=== PATIENT | male | born 1995 | race Caucasian/White ===

== ENCOUNTER 2016-10-18 20:30 | Emergency (ER) | payer OTHER ==
[2016-10-18 20:35] VITALS: BP 127/77
[2016-10-18] MEDS ORDERED: Tetracaine 0.5% OPTH.SOL 4 ML* 1 DROP BTL RIGHT EYE ONE (20:57)
[2016-10-18] MEDS ORDERED: Fluorescein Sodium TOPICAL* 1 MG TEST OPHTHALMIC ONE (20:58)
[2016-10-18] MEDS ORDERED: BSS OPTH.SOL* BTL OPHTHALMIC ONE (20:58)
--- NOTE | 2016-10-18 21:17 | UC ---
Eye Complaint HPI - HPI Summary HPI Summary: complaint of getting superglue into his right eye by accident this evening painful right eye can open eye but it is painful denies vision changes in eye - History of Current Complaint Chief Complaint: UCEye Stated Complaint: FB IN EYE Time Seen by Provider: 10/18/16 21:11 Hx Obtained From: Patient - Allergies/Home Medications Allergies/Adverse Reactions: Allergies Allergy/AdvReac Type Severity Reaction Status Date / Time Ibuprofen Allergy Unknown Verified 10/02/15 23:52 Reaction Details PMH/Surg Hx/FS Hx/Imm Hx Previously Healthy: Yes - Surgical History Surgical History: None - Family History Known Family History: Positive: Unknown Negative: Hypertension, Diabetes - Social History Occupation: Employed Full-time Lives: With Family Alcohol Use: Rare Substance Use Type: None, Synthetic Drugs Substance Use Comment - Amount & Last Used: took LSD 10/01 leading to admission Smoking Status (MU): Heavy Every Day Tobacco Smoker Type: Cigarettes Amount Used/How Often: 1/2ppd Have You Smoked in the Last Year: Yes Cessation Counseling: Patient Advised to Stop - Immunization History Most Recent Influenza Vaccination: na Most Recent Tetanus Shot: up to date Most Recent Pneumonia Vaccination: unknown Review of Systems Constitutional: Negative Skin: Negative Eyes: Other - super glue in eye ENT: Negative Respiratory: Negative Cardiovascular: Negative Gastrointestinal: Negative Genitourinary: Negative Motor: Negative Neurovascular: Negative Musculoskeletal: Negative Neurological: Negative Psychological: Negative All Other Systems Reviewed And Are Negative: Yes Physical Exam Triage Information Reviewed: Yes Appearance: No Pain Distress, Well-Nourished Vital Signs: Initial Vital Signs Temp 99.9 F 10/18/16 20:33 Pulse 99 10/18/16 20:33 Resp 20 10/18/16 20:33 BP 127/77 10/18/16 20:33 Pulse Ox 98 10/18/16 20:33 Vital Signs Reviewed: Yes Eyes: Positive: Conjunctiva Inflamed, Other: - right eye observed under fluoriscene- some superglue accumilation to bottom eyelid no abrasions to cornea ENT: Positive: Pharynx normal, TMs normal Neck: Positive: No Lymphadenopathy Respiratory: Positive: Lungs clear, Normal breath sounds, No respiratory distress, No accessory muscle use Cardiovascular: Positive: RRR, No Murmur, Pulses Normal Neurological Exam: Normal Psychological Exam: Other - anxious Skin Exam: Normal Eye Complaint Course/Dx - Differential Dx/Diagnosis Differential Diagnosis/HQI/PQRI: Corneal Abrasion, Foreign Body Provider Diagnoses: right eye- foreign substance Discharge - Discharge Plan Condition: Stable Disposition: HOME Patient Education Materials: Eye Pain (ED) Referrals: Vishnu Ahmadi MD [Medical Doctor] - Additional Instructions: Please start antibiotic ointment as directed call Dr Ahmadi for followup appt tomorrow morning Increase fluids and rest Take acetaminophen or ibuprofen for fever or pain Please review your discharge instructions. If your symptoms do not improve please call your primary care provider or return to urgent care
[2016-10-18] MEDS ORDERED: Erythromycin OPTH OINT* APPLIC OINT RIGHT EYE ONE (21:20)
== END 2016-10-18 21:35 | disposition home or self-care (01) ==
LOC: UCEAST 20:30
DX: T15.91XA Foreign body on external eye, part unspecified, right eye, initial encounter (principal); S00.251A Superficial foreign body of right eyelid and periocular area, initial encounter; Z72.0 Tobacco use
CPT/HCPCS: 99212; A9270-GY; G0463

== ENCOUNTER 2017-06-11 20:36 | Inpatient (IN) | payer OTHER ==
[2017-06-11 21:52] LABS: Urine Appearance Clear; Urine Blood Negative (Negative); Urine Color Yellow; Urine Ketones Trace (Negative); Urine Protein 1+(30 mg/dL) (Negative); Urine Specific Gravity 1.023 (1.010-1.030); Urine Urobilinogen Negative (Negative)
[2017-06-11 21:52] LABS: ABS Basophils 0 10^3/ul (0-0.2); ABS Eosinophils 0.1 10^3/ul (0-0.6); ABS Lymphocytes 1.3 10^3/ul (1.0-4.8); ABS Monocytes 0.4 10^3/ul (0-0.8); ABS Nucleated RBC 0 10^3/ul; Eosinophil % 1.2 % (0-6); Hematocrit 42 % (42-52); Hemoglobin 14.6 g/dl (14.0-18.0); Lymphocyte % 16.3 % (25-47); Mean Corpuscular HGB Conc 35 g/dl (31-36); Mean Corpuscular Hemoglobin 30 pg (27-31); Mean Corpuscular Volume 85 fL (80-94); Mean Platelet Volume 8 um3 (7.4-10.4); Nucleated Red Blood Cells % 0.2; Platelet Count 261 10^3/ul (150-450); Red Blood Count 4.88 10^6/ul (4.0-5.4); Red Cell Distribution Width 13 % (10.5-15); White Blood Count 7.8 10^3/ul (3.5-10.8)
[2017-06-11 22:07] LABS: EGFR Non-African American 103.6 (>60)
--- NOTE | 2017-06-12 05:47 | ED ---
Milton Mcgee Stephanie, scribed for Wisam Cannon MD on 06/11/17 at 2127 . Psychiatric Complaint - HPI Summary HPI Summary: The pt is a 21 y/o M BIB [facility] on a voluntary 941 call due to purchasing a weapon at 20:43. The pt states havent been taken my meds like I should". The pt states he is unaware of who informed the police of his weapon. The pt states he purchased a semi-automatic rifle approximately six months ago however, he states he has not had the chance to use it. The pt denies hunting. He states he used to attend [employer] but is currently on a leave of absence from [employer]. He last saw his psychiatrist on April 07, 2017. The pt denies SI and HI. - History Of Current Complaint Chief Complaint: EDMentalHealth Time Seen by Provider: 06/11/17 21:05 Hx Obtained From: Patient Onset/Duration: Still Present Character: Anxious Aggravating Factor(s): Nothing Alleviating Factor(s): Nothing Has Suicidal: Denies: Thoughts Has Homicidal: Denies: Thoughts - Allergies/Home Medications Allergies/Adverse Reactions: Allergies Allergy/AdvReac Type Severity Reaction Status Date / Time ibuprofen Allergy Unknown Verified 06/11/17 20:46 Reaction Details Home Medications: Home Medications Divalproex ER TAB(*) [Depakote ER TAB(*)] 1,250 mg PO DAILY 06/11/17 [History Confirmed 06/11/17] Lisdexamfetamine (NF) [Vyvanse (NF)] 70 mg PO DAILY 06/11/17 [History Confirmed 06/11/17] Trifluoperazine HCl 5 mg PO DAILY 06/11/17 [History Confirmed 06/11/17] buPROPion SR TAB* [Wellbutrin SR TAB*] 150 mg PO DAILY 06/11/17 [History Confirmed 06/11/17] clonazePAM TAB(*) [KlonoPIN TAB(*)] 2 mg PO DAILY 06/11/17 [History Confirmed ] PMH/Surg Hx/FS Hx/Imm Hx Respiratory History: Reports: Hx Asthma Denies: Hx Chronic Bronchitis, Hx Chronic Obstructive Pulmonary Disease (COPD ), Hx Cystic Fibrosis, Hx Lung Cancer, Hx Pleural Effusion, Hx Pneumonia, Hx Pulmonary Edema, Hx Pulmonary Embolism, Hx Seasonal Allergies, Hx Sleep Apnea, Other Respiratory Problems/Disorders Psychiatric History: Reports: Hx Depression, Hx Community Mental Health Tx - Saw a therapist Joe Dupont, Hx Bipolar Disorder - told a possibility, Hx Suicide Attempt - events leading to this admission, Other Psychiatric Issues/ Disorders - mood disorder Denies: Hx Anxiety, Hx Attention Deficit Hyperactivity Disorder, Hx Eating Disorder - Pt denies eat d/o, reports poor appetite chronically, Hx Panic Disorder, Hx Post Traumatic Stress Disorder, Hx Inpatient Treatment, Hx Schizophrenia, Hx of Violent Episodes Against Others - Pt Denies, Hx Substance Abuse - experiments - Surgical History Surgery Procedure, Year, and Place: NONE Infectious Disease History: No Infectious Disease History: Denies: Hx Tuberculosis, Traveled Outside the [place] in Last 30 Days - Family History Known Family History: Positive: Unknown Negative: Hypertension, Diabetes - Social History Occupation: Student Lives: Alone Alcohol Use: Rare Hx Substance Use: Yes Substance Use Type: Reports: None, Synthetic Drugs Substance Use Comment - Amount & Last Used: took LSD 10/01 leading to admission Smoking Status (MU): Heavy Every Day Tobacco Smoker Type: Cigarettes Amount Used/How Often: 1/2ppd Have You Smoked in the Last Year: Yes Review of Systems Negative: Fever Positive: Other - Negative: SI and HI All Other Systems Reviewed And Are Negative: Yes Physical Exam - Summary Physical Exam Summary: VITAL SIGNS: Reviewed. GENERAL: Patient is a well-developed and nourished MALE who is sitting comfortable in the stretcher. Patient is not in any acute respiratory distress. HEAD AND FACE: No signs of trauma. No ecchymosis, hematomas or skull depressions. No sinus tenderness. EYES: PERRLA, EOMI x 2, No injected conjunctiva, no nystagmus. EARS: Hearing grossly intact. Ear canals and tympanic membranes are within normal limits. MOUTH: Oropharynx within normal limits. NECK: Supple, trachea is midline, no adenopathy, no JVD, no carotid bruit, no c- spine tenderness, neck with full ROM. CHEST: Symmetric, no tenderness at palpation LUNGS: Clear to auscultation bilaterally. No wheezing or crackles. CVS: Regular rate and rhythm, S1 and S2 present, no murmurs or gallops appreciated. ABDOMEN: Soft, non-tender. No signs of distention. No rebound no guarding, and no masses palpated. Bowel sounds are normal. EXTREMITIES: FROM in all major joints, no edema, no cyanosis or clubbing. NEURO: Alert and oriented x 3. No acute neurological deficits. Speech is normal and follows commands. SKIN: Dry and warm PSYCH: withdrawn and anxious but cooperative. Denies SI and HI Triage Information Reviewed: Yes Vital Signs On Initial Exam: Initial Vitals Temp Pulse Resp BP Pulse Ox 99.5 F 110 16 139/75 99 06/11/17 20:39 06/11/17 20:39 06/11/17 20:39 06/11/17 20:39 06/11/17 20:39 Vital Signs Reviewed: Yes Diagnostics - Vital Signs Vital Signs Temp Pulse Resp BP Pulse Ox 06/11/17 20:39 99.5 F 110 16 139/75 99 - Laboratory Lab Results: Lab Results 06/11/17 06/11/17 06/11/17 Range/Units 21:21 21:21 21:35 WBC (3.5-10.8) 10^3/ul RBC (4.0-5.4) 10^6/ul Hgb (14.0-18.0) g/dl Hct (42-52) % MCV (80-94) fL MCH (27-31) pg MCHC (31-36) g/dl RDW (10.5-15) % Plt Count (150-450) 10^3/ul MPV (7.4-10.4) um3 Neut % (Auto) (38-83) % Lymph % (Auto) (25-47) % Mercer % (Auto) (0-7) % Eos % (Auto) (0-6) % Baso % (Auto) (0-2) % Absolute Neuts (auto) (1.5-7.7) 10^3/ul Absolute Lymphs (auto) (1.0-4.8) 10^3/ul Absolute Monos (auto) (0-0.8) 10^3/ul Absolute Eos (auto) (0-0.6) 10^3/ul Absolute Basos (auto) (0-0.2) 10^3/ul Absolute Nucleated RBC 10^3/ul Nucleated RBC % Sodium 135 (133-145) mmol/L Potassium 4.1 (3.5-5.0) mmol/L Chloride 101 (101-111) mmol/L Carbon Dioxide 27 (22-32) mmol/L Anion Gap 7 (2-11) mmol/L BUN 13 (6-24) mg/dL Creatinine 0.93 (0.67-1.17) mg/dL Est GFR ( Amer) 133.2 (>60) Est GFR (Non-Af Amer) 103.6 (>60) BUN/Creatinine Ratio 14.0 (8-20) Glucose 105 H (70-100) mg/dL Calcium 9.8 (8.6-10.3) mg/dL Total Bilirubin 0.50 (0.2-1.0) mg/dL AST 15 (13-39) U/L ALT 13 (7-52) U/L Alkaline Phosphatase 68 (34-104) U/L Total Protein 7.4 (6.4-8.9) g/dL Albumin 4.7 (3.2-5.2) g/dL Globulin 2.7 (2-4) g/dL Albumin/Globulin Ratio 1.7 (1-3) TSH 0.53 (0.34-5.60) mcIU/mL Urine Color Yellow Urine Appearance Clear Urine pH 6.0 (5-9) Ur Specific [place] 1.023 (1.010-1.030) Urine Protein 1+(30 mg/dl) A (Negative) Urine Ketones Trace A (Negative) Urine Blood Negative (Negative) Urine Nitrate Negative (Negative) Urine Bilirubin Negative (Negative) Urine Urobilinogen Negative (Negative) Ur Leukocyte Esterase Negative (Negative) Urine WBC (Auto) Trace(0-5/hpf) (Absent) Urine RBC (Auto) Trace(0-2/hpf) (Absent) Urine Bacteria Absent (Absent) Urine Sperm Present A (Absent) Urine Glucose 1+(50 mg/dl) A (Negative) Salicylates < 2.50 (<30) mg/dL Urine Opiates Screen Presumptive positive A (None Detect) Acetaminophen < 15 mcg/mL Ur Barbiturates Screen None detected (None Detect) Ur Phencyclidine Scrn None detected (None Detect) Ur Amphetamines Screen Presumptive positive A (None Detect) U Benzodiazepines Scrn Presumptive positive A (None Detect) Urine Cocaine Screen None detected (None Detect) U Cannabinoids Screen None detected (None Detect) Serum Alcohol < 10 (<10) mg/dL 06/11/17 Range/Units 21:35 WBC 7.8 (3.5-10.8) 10^3/ul RBC 4.88 (4.0-5.4) 10^6/ul Hgb 14.6 (14.0-18.0) g/dl Hct 42 (42-52) % MCV 85 (80-94) fL MCH 30 (27-31) pg MCHC 35 (31-36) g/dl RDW 13 (10.5-15) % Plt Count 261 (150-450) 10^3/ul MPV 8 (7.4-10.4) um3 Neut % (Auto) 77.2 (38-83) % Lymph % (Auto) 16.3 L (25-47) % Mercer % (Auto) 4.7 (0-7) % Eos % (Auto) 1.2 (0-6) % Baso % (Auto) 0.6 (0-2) % Absolute Neuts (auto) 6.0 (1.5-7.7) 10^3/ul Absolute Lymphs (auto) 1.3 (1.0-4.8) 10^3/ul Absolute Monos (auto) 0.4 (0-0.8) 10^3/ul Absolute Eos (auto) 0.1 (0-0.6) 10^3/ul Absolute Basos (auto) 0 (0-0.2) 10^3/ul Absolute Nucleated RBC 0 10^3/ul Nucleated RBC % 0.2 Sodium (133-145) mmol/L Potassium (3.5-5.0) mmol/L Chloride (101-111) mmol/L Carbon Dioxide (22-32) mmol/L Anion Gap (2-11) mmol/L BUN (6-24) mg/dL Creatinine (0.67-1.17) mg/dL Est GFR ( Amer) (>60) Est GFR (Non-Af Amer) (>60) BUN/Creatinine Ratio (8-20) Glucose (70-100) mg/dL Calcium (8.6-10.3) mg/dL Total Bilirubin (0.2-1.0) mg/dL AST (13-39) U/L ALT (7-52) U/L Alkaline Phosphatase (34-104) U/L Total Protein (6.4-8.9) g/dL Albumin (3.2-5.2) g/dL Globulin (2-4) g/dL Albumin/Globulin Ratio (1-3) TSH (0.34-5.60) mcIU/mL Urine Color Urine Appearance Urine pH (5-9) Ur Specific [place] (1.010-1.030) Urine Protein (Negative) Urine Ketones (Negative) Urine Blood (Negative) Urine Nitrate (Negative) Urine Bilirubin (Negative) Urine Urobilinogen (Negative) Ur Leukocyte Esterase (Negative) Urine WBC (Auto) (Absent) Urine RBC (Auto) (Absent) Urine Bacteria (Absent) Urine Sperm (Absent) Urine Glucose (Negative) Salicylates (<30) mg/dL Urine Opiates Screen (None Detect) Acetaminophen mcg/mL Ur Barbiturates Screen (None Detect) Ur Phencyclidine Scrn (None Detect) Ur Amphetamines Screen (None Detect) U Benzodiazepines Scrn (None Detect) Urine Cocaine Screen (None Detect) U Cannabinoids Screen (None Detect) Serum Alcohol (<10) mg/dL Result Diagrams: 06/11/17 21:35 06/11/17 21:35 Lab Statement: Any lab studies that have been ordered have been reviewed, and results considered in the medical decision making process. Course/Dx - Course Course Of Treatment: The pt will be held overnight in the ED. He is a sign out to Dr. Smalls at shift change pending FBI involvement (Per KANWAL Stacy). - Differential Dx/Clinical Impression Provider Diagnosis: Bipolar 1 disorder Discharge - Discharge Plan Condition: Stable Disposition: OTHER Discharge Disposition Comment: The pt will be a sign out to Dr. Smalls at shift change at 07:00. Referrals: No Primary Care Phys,NOPCP [Primary Care Provider] - The documentation as recorded by the Milton stokes Stephanie accurately reflects the service I personally performed and the decisions made by me, Wisam Cannon MD.
[2017-06-12] MEDS ORDERED: Al Hydrox/Mg Hydrox/Simet LIQ* 30 ML UDC PO PRN (11:06)
--- NOTE | 2017-06-12 11:28 | ADMNOTE ---
History - Objective HPI: Psychiatric Attending History and Physical NAME: Ezequiel Walsh : 1995 AGE: 21 PROVIDER: Ari Knight D.O. DATE OF ADMISSION: 06/12/2017 JUSTIFICATION FOR ADMISSION: patient brought by [place] police to evaluate whether patient is threat to self and/or others. FBI investigation and recent search of home reveals patient has been purchasing and stockpiling weapons and ammunition in his home. Patient has history of psychiatric illness, hospitalization and treatment. Patient requires admission to inpatient psychiatric unit which offers 24 hour supervision in order to fully assess his mental status in order to determine whether he is currently a safety risk and if so, to provide treatment and appropriate discharge planning until that risk is no longer present. CHIEF COMPLAINT: "I haven't been taking my medication" HISTORY OF THE PRESENT ILLNESS: Patient is a 21 yo single male, living alone in [place]. He attended [employer] for a year but withdraw in the context of mental health problems. He is currently 3/4 time student at [employer] and works 6 hours doing [employer]. He was hospitalized less than a year ago on our behavioral health unit in the context of agitation and psychotic symtoms which resolved . 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 Patient has been receiving outpatient psychiatric treatment from Dr. Zepeda for "bipolar disorder" and ADHD. On admission, he endorsed not taking his psychiatric medications for the past week or so, His medications include Depakote ER, Stellazine, Wellbutrin XL and Vyvanse. According to the record police were notified that patient had gun in his apratment and concern was raised that with patient's history of depression there was a risk of danger to self. Per ED chart [place] Police and FBI came to patient's apartment with a search warrant. Per ED record "Guns, abundant amouts of ammunition and bomb making materials" were found in his apartment. Patient was brought to the ED last night by [place] police department for evaluation of his level of safety. Patient has history of intermittent self injury (superficial cutting of arms). Has not self injured since spring. history of episodic SI related to being depressed. never had intent or plan. no history of suicide attempt. patient last had passive SI in spring. There is no history of arrest, incarceration or legal problems. Patient denies past history of aggression, explosive behavior, assaultive behavior. He has never been in a physical fight or altercation. denies being bullied as a child. deies lighting fires or fascination with fires. Also denies history of enuresis, killing animals either as a child or adult. Patient admits to increased depression over past few weeks which has been exacerbated by non compliance with his medication. He endorses: less attention to ADL's (wearing same clothes, not shaving), feeling sadder than usual, anhedonia, low energy, low motivation, missing more classes than usual, isolating in his apartment. PAST PSYCHIATRIC HISTORY: Pateint describes being shy, anxious, distractible, inattentive, and "a difficult kid" beginning in [employer]. Attended private day school 2nd through 8th grade and struggled with completing homework and meeting rigorous academic expectation due to his severe ADHD. Treated by Dr. Lozoya for psychotherapy, family therapy and medication for 7 years. Parent training helped parernts understand and help Max through difficulties. Treated with Adderall 4th through 8th grades which helped. patient describes being social anxious and self conscious since 1st grade. depression began in early middle school but not formally diagnosed till later. Went to public school where he had friends and was highly motivated to succeed so he could be like the friends he admired. no medication through high school. worked very hard to get good grades (A's,B's occ C). Freshman year (fall to Spring 2015). patient reports he was overwhelmed being away from home in new environement and having to care for himself. increasing symptoms of depression first semester. struggling academically due to depression and untreated ADHD. made comments about feeling suicidal to his girlfriend. reports binge drug use throughout freshman year including cocaine and stimulants which he obtained "on street". advised to go home by counseling service. went home to [facility] saw psychiatrist who diagnosed depression and started Lexapro in Feb 2015. managed to complete the semester with passing grades. believes lexapro helped with depression. Depressive Symptoms at some point cycled into first manic episode. Upon returning for second semester patient describes symptoms of marli which persisted for many months including grandiose thoughts, hyperverbal, increased goal direction, risky behaviors like speeding 120 miles per hour, insomnia, bingeing on different drugs. patient reports that drug use was fueled by "feeling invincible" and not the other way around. Hospitalized September 2015 at [facility] after using LSD upon discharge from [facility], parents brought him to [facility] where he was hositalized for 2 weeks. Reports he was diagnosed with bipolar disorder started on seroquel up to 250 mg and maintained on wellbutrin 150 mg. subsequently, did 6 week [facility] program where he was started on haldol and seroquel was increased to 600 mg. reports, that he had severe sedation and developed auditory hallucinations from increase in seroquel. also was told that his correct diagnosis was schizophrenia. Parents withdrew him from program early and patient discontinued seroquel and haldol He returned to [employer] for fall. Began seeing new psychiatrist (Dr. Plascencia). struggled academically and withdrew from school. School Gave him a leave of absence for one year and agreed to reconsider him for readmission in one year (apr 2016 to Apr 2017). he attended [employer] during this time but attempted to take on too many classes. failed a few classes but passed others. attempted to return to [employer] in Apr 2017 but was told to take an additional semester off before reapplying. SUBSTANCE ABUSE HISTORY: binge use of cocaine. last used in 2015, marijuana use sporadically. reports monthly use only, used to use heavily in high school, LSD on 5 to 6 occasions. Last used in fall, used percocet for a month in 2015 and most recently 5 day binge of codein just prior to being admitted here. abused stimulants and cocaine during manic period in spring. PAST MEDICAL HISTORY: asthma CURRENT MEDICATIONS: Depakote ER 1250 mg daily Trifluoperazine 5 mg qhs Wellbutrin XL 150 mg qam Vyvanse 70 mg QAM ALLERGIES: Ibuprofen FAMILY PSYCHIATRIC HISTORY: Mother with history of Bipolar disorder. used lithium in the past Paternal Uncle: completed suicide paternal side: alcoholism FAMILY/PSYCHOSOCIAL HISTORY: Father disabled in car accident when he was 6. father retired from finance field Mother and father have good marriage. denies history of abuse/trauma. two sisters both younger. one is a freshman at [employer] this year. very close with family. REVIEW OF SYSTEMS: all noncontributory per hospitalist's H and P completed in ED on 06/11/2017 PHYSICAL EXAMINATION: UNREMARKABLE (NORMAL PHYSICAL EXAMINATION) per hospitalists H and P completed in ED on 06/11/2017 MENTAL STATUS EXAMINATION: patient reports he has been in moderate depression past few months with anhedonia, anergia, amotivation, negative self image, sleep difficulty. denies SIB since freshman year of college. denies suicidal ideation since late freshman year in high school. has not been getting to classes lately has been bingeing on various drugs intermittently (LSD,alcohol,codein). received codein from dentist last month. never used it. but prior to admission patient binged with the codein tablets using 30 tablets over 5 day period. He denies feeling suicidal or homicidal. He is not sure who called police. Thinks it may have been girlfriend and "wouldn't blame her if she had" although he denies making any provocative statements to gf about harming self or others. Patient was home last night. [facility] and [place] Police raided his home The ED record states that police found guns, ammunition and bomb making material. Patient reports to me that he had one gun, that he did have 500 to 700 bullets. He reports he had a piece of PVC pipe and a cover slide for a muzzle which he ackowledges are used in bomb making but he denies that they were in his possession for any such purpose. When asked about the gun he tells me that he has always had interest in guns and was exposed to target practice by his god father on 5 or 6 occasions in high school. He endorses buying the gun 6 months ago. He reports he had been thinking about the purchase for about two weeks. He asked gun shop reducing system operator if he were eligible as he had been voluntarily admitted to psychiatric hospital in past. He was told he was eligible. He waited a week to buy it. reports he never had any intention to harm anyone that he didnt know or someone who didn't have malintent for him. when asked to further explain, he admitted to feeling paranoid at times and feeling safer that he had a weapon in house in case of a home invasion. He denied feeling persecuted by any particular person or group. He fruther admitted to past history of visual hallucinations of ghosts with different colors which signify what mood they are in, hearing voices in past of people calling his name. also reported past history of believing that people were conspiring against him. reports he had first marli in second semester of his freshman year (2 years ago) He had grandiosity, rapid speech, incrased goal direction, severe impulsivity, increased sociabiility (compared to his normal shyness), marked insomnia, racing thoughts. believes marli fueled his drug use at the time which included fentanyl,cocaine and LSD. the latter use resulted in him being hospitalized here in September 2016. Patient further reports having not taken his stellazine for past week reprots that stellazine works to eliminate visual hallucinations, paranoia, and his grandiose thoughts. Patient denied ever having thoughts or fantasies of using gun in rampage shooting. denies ever firing the weapon. when asked what he does with it he reported that he assembes and disassmbles it, looks at it and enjoys seeing it. reports that he has never loaded it with ammunition because "that's the first thing you learn is that you never load it due to the danger" MSE: fairly related mood: dysphoric affect: limited range, constricted, some flattenting TP organized TC: denies AH and VH at present time but has had them intermittently over past two years attempts to cover it up, but clearly has some degree of suspiciousness, paranoia, a sense that he has to protect himself from unknown individuals who might harm him there is no specific individual or group but a general uneasiness about intention of strangers. patient admits to periods of marli when he has grandiose thoughts and feels euphoric and inflated. This is not the way he feels presently. He also endorses great difficulty concentrating, remaining on task, which improves somewhat with use of vyvanse but clearly not enough to be sucessful academically In past three semesters he has failed several classes which he was then permitted to withdraw from. there is no evidence patient is homicidal or has ever had homicidal ideation, intent or plan in past. patient has no Suicidal ideation intention or plan at present time. He reports that he has not felt suicidal since freshman year of college and that even then he never had intention or plan to carry it out. Alert and fully oriented cogntive exam: deferred till tomorrow insight: good with regard to mental health issues but not with regard to his substance addiction issues judgment: will defer at moment as I will need collateral history to make this determination impulse control: impaired secondary to his adhd, and mood disorder. LABORATORY DATA: Laboratory Last Values WBC 7.8 10^3/ul (3.5-10.8) 06/11/17 21:35 RBC 4.88 10^6/ul (4.0-5.4) 06/11/17 21:35 Hgb 14.6 g/dl (14.0-18.0) 06/11/17 21:35 Hct 42 % (42-52) 06/11/17 21:35 MCV 85 fL (80-94) 06/11/17 21:35 MCH 30 pg (27-31) 06/11/17 21:35 MCHC 35 g/dl (31-36) 06/11/17 21:35 RDW 13 % (10.5-15) 06/11/17 21:35 Plt Count 261 10^3/ul (150-450) 06/11/17 21:35 MPV 8 um3 (7.4-10.4) 06/11/17 21:35 Neut % (Auto) 77.2 % (38-83) 06/11/17 21:35 Lymph % (Auto) 16.3 % (25-47) L 06/11/17 21:35 Woodford % (Auto) 4.7 % (0-7) 06/11/17 21:35 Eos % (Auto) 1.2 % (0-6) 06/11/17 21:35 Baso % (Auto) 0.6 % (0-2) 06/11/17 21:35 Absolute Neuts (auto) 6.0 10^3/ul (1.5-7.7) 06/11/17 21:35 Absolute Lymphs (auto) 1.3 10^3/ul (1.0-4.8) 06/11/17 21:35 Absolute Monos (auto) 0.4 10^3/ul (0-0.8) 06/11/17 21:35 Absolute Eos (auto) 0.1 10^3/ul (0-0.6) 06/11/17 21:35 Absolute Basos (auto) 0 10^3/ul (0-0.2) 06/11/17 21:35 Absolute Nucleated RBC 0 10^3/ul 06/11/17 21:35 Nucleated RBC % 0.2 06/11/17 21:35 Sodium 135 mmol/L (133-145) 06/11/17 21:35 Potassium 4.1 mmol/L (3.5-5.0) 06/11/17 21:35 Chloride 101 mmol/L (101-111) 06/11/17 21:35 Carbon Dioxide 27 mmol/L (22-32) 06/11/17 21:35 Anion Gap 7 mmol/L (2-11) 06/11/17 21:35 BUN 13 mg/dL (6-24) 06/11/17 21:35 Creatinine 0.93 mg/dL (0.67-1.17) 06/11/17 21:35 Est GFR ( Amer) 133.2 (>60) 06/11/17 21:35 Est GFR (Non-Af Amer) 103.6 (>60) 06/11/17 21:35 BUN/Creatinine Ratio 14.0 (8-20) 06/11/17 21:35 Glucose 105 mg/dL (70-100) H 06/11/17 21:35 Hemoglobin A1c 5.4 % (4.0-5.6) 06/11/17 21:35 Calcium 9.8 mg/dL (8.6-10.3) 06/11/17 21:35 Total Bilirubin 0.50 mg/dL (0.2-1.0) 06/11/17 21:35 AST 15 U/L (13-39) 06/11/17 21:35 ALT 13 U/L (7-52) 06/11/17 21:35 Alkaline Phosphatase 68 U/L (34-104) 06/11/17 21:35 Total Protein 7.4 g/dL (6.4-8.9) 06/11/17 21:35 Albumin 4.7 g/dL (3.2-5.2) 06/11/17 21:35 Globulin 2.7 g/dL (2-4) 06/11/17 21:35 Albumin/Globulin Ratio 1.7 (1-3) 06/11/17 21:35 Triglycerides 42 mg/dL 06/11/17 21:35 Cholesterol 158 mg/dL 06/11/17 21:35 LDL Cholesterol 84 mg/dL 06/11/17 21:35 HDL Cholesterol 65.7 mg/dL 06/11/17 21:35 TSH 0.53 mcIU/mL (0.34-5.60) 06/11/17 21:35 Free T4 0.68 ng/dL (0.61-1.12) 06/11/17 21:35 Thyroxine (T4) 6.51 mcg/mL (6.09-12.23) 06/11/17 21:35 Urine Color Yellow 06/11/17 21:21 Urine Appearance Clear 06/11/17 21: Urine pH 6.0 (5-9) 06/11/17 21: Ur Specific Manson 1.023 (1.010-1.030) 06/11/17 21: Urine Protein 1+(30 mg/dl) (Negative) A 06/11/17 21: Urine Ketones Trace (Negative) A 06/11/17 21: Urine Blood Negative (Negative) 06/11/17 21: Urine Nitrate Negative (Negative) 06/11/17 21: Urine Bilirubin Negative (Negative) 06/11/17 21:21 Urine Urobilinogen Negative (Negative) 06/11/17 21: Ur Leukocyte Esterase Negative (Negative) 06/11/17 21: Urine WBC (Auto) Trace(0-5/hpf) (Absent) 06/11/17 21:21 Urine RBC (Auto) Trace(0-2/hpf) (Absent) 06/11/17 21:21 Urine Bacteria Absent (Absent) 06/11/17 21: Urine Sperm Present (Absent) A 06/11/17 21: Urine Glucose 1+(50 mg/dl) (Negative) A 06/11/17 21: Salicylates < 2.50 mg/dL (<30) 06/11/17 21:35 Urine Opiates Screen Presumptive positive (None Detect) A 06/11/17 21: Acetaminophen < 15 mcg/mL 06/11/17 21:35 Ur Barbiturates Screen None detected (None Detect) 06/11/17 21: Valproic Acid < 13.0 mcg/mL (50-100) L 06/11/17 21:35 Ur Phencyclidine Scrn None detected (None Detect) 06/11/17 21:21 Ur Amphetamines Screen Presumptive positive (None Detect) A 06/11/17 21:21 U Benzodiazepines Scrn Presumptive positive (None Detect) A 06/11/17 21:21 Urine Cocaine Screen None detected (None Detect) 06/11/17 21:21 U Cannabinoids Screen None detected (None Detect) 06/11/17 21:21 Serum Alcohol < 10 mg/dL (<10) 06/11/17 21:35 Syphilis IgG Antibody Nonreactive (Nonreactive) 06/11/17 21:35 IMPRESSION: Impression: patient has longstanding depression with prolonged manic episode in spring. He has been bingeing on multiple street drugs for many years likely a result of inadequate treatment of his comorbid disorders of ADHD and affective disorder. although it is plausible that psychotic symptoms are secondary to drug use, the presence of multiple psychotic symptoms (hallucinations and delusions) over the past two years present clearly during periods of depressiona and marli point to diagnosis of bipolar disorder. However, my sense is that patient's paranoia is much more pervasive and persistent and not just present during mood episodes or after drug use. Patient's anhedonia, anergy,social isolation, affective flattening are more consistent with negative psychotic sympotms. 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 stellazine 5 mg qhs Depakote ER 1250 mg qhs klonopin 2 mg qhs Hold stimulants for now patients substance issues require separate focus on discharge. consider outpatient versus inpatient program parents and patient will need to collaborate with regard to subtance treatment options consider adding lithium and changing stelazine to abilify as it treats bipolar disorder and psychotic symptoms seen in SAD get depakote level
--- NOTE | 2017-06-12 11:29 | ED ---
Ha Mcgee Angela, scribed for Albaro Smalls MD on 06/12/17 at 0935 . Progress - Progress Note Progress Note: This pt was signed out by Dr. Cannon, pending disposition, awaiting MHE. Pt was evaluated by the mental health tile helper and his case was reviewed by Dr. Dominguez. Dr. Dominguez recommends for the pt to be admitted to [facility]. Pt will be admitted to [facility], in stable condition, with a diagnosis of unspecified psychosis. Condition: Stable Disposition: Admit to Psychiatric [facility] Course/Dx - Diagnoses Provider Diagnoses: Unspecified psychosis The documentation as recorded by the Ha stokes Angela accurately reflects the service I personally performed and the decisions made by Slim becker Walter, MD.
[2017-06-12] MEDS ORDERED: clonazePAM TAB(*) 1 MG PO SCH ×2 (12:00→21:00)
[2017-06-12] MEDS: Mouth Piece, Nicotine* 1 EACH CARTRIDGE INH PRN (12:32)
[2017-06-12] MEDS: Nicotine Inhaler* 10 MG AMP INH PRN ×3 (12:33→22:10)
[2017-06-12] MEDS: Divalproex ER TAB(*) 250 MG PO SCH (12:33)
--- NOTE | 2017-06-12 18:48 | PN ---
Subjective - Subjective Subjective: psychiatric attending progress note Patient interviewed, mental status examination completed. In summary patient is 21 year old with history of bipolar disorder, polysubstance abuse, ADHD, social anxiety disorder who is currently in outpatient psychiatric treatment with Dr. Zepeda for past 2 years. patient last saw psychiatrist in April 2017. not currently seeing therapist. 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 He has been on temporary academic leave from [employer] since April 2016 having only completed two semesters. he lives alone and has girlfriend. one prior psychiatric hospitalization September 2015 when he became psychotic after using LSD. Longstanding history of depression since middle school. severe ADHD inattentive type since recyclable products sorter treated with adderall from 4th to 8th grade with adderall. no meds for high school where he excelled because he was highly motivated to get good grades like his friends. struggled to focus in high school, put in large number of hours to get work done. was depressed and experimented with drugs to self medicate depression and help him focus. patient reports he has been in moderate depression past few months with anhedonia, anergia, amotivation, negative self image, sleep difficulty. denies SIB since freshman year of college. denies suicidal ideation since late freshman year in high school. has not been getting to classes lately has been bingeing on various drugs intermittently (LSD,alcohol,codein). received codein from dentist last month. never used it. but prior to admission patient binged with the codein tablets using 30 tablets over 5 day period. He denies feeling suicidal or homicidal. He is not sure who called police. Thinks it may have been girlfriend and "wouldn't blame her if she had" although he denies making any provocative statements to gf about harming self or others. Patient was home last night. [facility] and [place] Police raided his home The ED record states that police found guns, ammunition and bomb making material. Patient reports to me that he had one gun, that he did have 500 to 700 bullets. He reports he had a piece of PVC pipe and a cover slide for a muzzle which he ackowledges are used in bomb making but he denies that they were in his possession for any such purpose. When asked about the gun he tells me that he has always had interest in guns and was exposed to target practice by his god father on 5 or 6 occasions in high school. He endorses buying the gun 6 months ago. He reports he had been thinking about the purchase for about two weeks. He asked gun shop hotel maintenance engineer if he were eligible as he had been voluntarily admitted to psychiatric hospital in past. He was told he was eligible. He waited a week to buy it. reports he never had any intention to harm anyone that he didnt know or someone who didn't have malintent for him. when asked to further explain, he admitted to feeling paranoid at times and feeling safer that he had a weapon in house in case of a home invasion. He denied feeling persecuted by any particular person or group. He fruther admitted to past history of visual hallucinations of ghosts with different colors which signify what mood they are in, hearing voices in past of people calling his name. also reported past history of believing that people were conspiring against him. reports he had first marli in second semester of his freshman year (2 years ago) He had grandiosity, rapid speech, incrased goal direction, severe impulsivity, increased sociabiility (compared to his normal shyness), marked insomnia, racing thoughts. believes marli fueled his drug use at the time which included fentanyl,cocaine and LSD. the latter use resulted in him being hospitalized here in September 2016. Patient further reports having not taken his stellazine for past week reprots that stellazine works to eliminate visual hallucinations, paranoia, and his grandiose thoughts. Patient denied ever having thoughts or fantasies of using gun in rampage shooting. denies ever firing the weapon. when asked what he does with it he reported that he assembes and disassmbles it, looks at it and enjoys seeing it. reports that he has never loaded it with ammunition because "that's the first thing you learn is that you never load it due to the danger" MSE: fairly related mood: dysphoric affect: limited range, constricted, some flattenting TP organized TC: denies AH and VH at present time but has had them intermittently over past two years attempts to cover it up, but clearly has some degree of suspiciousness, paranoia, a sense that he has to protect himself from unknown individuals who might harm him there is no specific individual or group but a general uneasiness about intention of strangers. patient admits to periods of marli when he has grandiose thoughts and feels euphoric and inflated. This is not the way he feels presently. He also endorses great difficulty concentrating, remaining on task, which improves somewhat with use of vyvanse but clearly not enough to be sucessful academically In past three semesters he has failed several classes which he was then permitted to withdraw from. there is no evidence patient is homicidal or has ever had homicidal ideation, intent or plan in past. patient has no Suicidal ideation intention or plan at present time. He reports that he has not felt suicidal since freshman year of college and that even then he never had intention or plan to carry it out. Alert and fully oriented cogntive exam: deferred till tomorrow insight: good with regard to mental health issues but not with regard to his substance addiction issues judgment: will defer at moment as I will need collateral history to make this determination impulse control: impaired secondary to his adhd, and mood disorder. Impression: patient has longstanding depression with prolonged manic episode in Spring of 2015. He has been bingeing on multiple street drugs for many years likely a result of inadequate treatment of his comorbid disorders of ADHD and affective disorder. although it is plausible that psychotic symptoms are secondary to drug use, the presence of multiple psychotic symptoms (hallucinations and delusions) over the past two years present clearly during periods of depressiona and marli point to diagnosis of bipolar disorder. However, my sense is that patient's paranoia is much more pervasive and persistent and not just present during mood episodes or after drug use. Patient's anhedonia, anergy,social isolation, affective flattening are more consistent with negative psychotic sympotms. 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 stellazine 5 mg qhs Depakote ER 1250 mg qhs klonopin 2 mg qhs Hold stimulants for now patient needs residential drug rehabilitation program would add lithium as well for bipolar disorder Plan - Plan Medications: Current Medications Acetaminophen (Tylenol Tab*) 650 mg PO Q4H PRN PRN Reason: for pain; or Temp >101 F Al Hydrox/Mg Hydrox/Simethicone (Maalox Plus*) 30 ml PO Q4H PRN PRN Reason: INDIGESTION Bupropion HCl (Wellbutrin Sr Tab*) 150 mg PO DAILY [facility] Clonazepam (Klonopin Tab(*)) 2 mg PO DAILY [facility] Last Admin: 06/12/17 12:33 Dose: 2 mg Device (Nicotine Mouth Piece*) 1 each INH .USE WITH NICOTROL PRN PRN Reason: CRAVING Last Admin: 06/12/17 12:32 Dose: 1 each Divalproex Sodium (Depakote Er Tab(*)) 1,250 mg PO DAILY [facility] Last Admin: 06/12/17 12:33 Dose: 1,250 mg Nicotine (Nicotine Inhaler*) 10 mg INH Q2H PRN PRN Reason: CRAVING Last Admin: 06/12/17 12:33 Dose: 10 mg Nicotine Polacrilex (Nicotine Gum*) 2 mg PO Q2H PRN PRN Reason: CRAVING
[2017-06-12] MEDS: Nicotine Patch Removal NOTE FOLLOW UP SCH (20:43)
[2017-06-12] MEDS: Acetaminophen TAB* 325 MG PO PRN (20:49)
[2017-06-13] MEDS ORDERED: Influenza VAC *QUAD* 2017-18* 0.5 ML SYRINGE IM ONE (09:00)
[2017-06-13] MEDS: Nicotine PATCH 7 MG/24 HR* PATCH TRANSDERM SCH (09:36)
[2017-06-13] MEDS: buPROPion SR TAB.SR* 150 MG PO SCH (09:37)
[2017-06-13] MEDS: Nicotine Inhaler* 10 MG AMP INH PRN ×5 (09:39→20:35)
[2017-06-13] MEDS: Acetaminophen TAB* 325 MG PO PRN ×4 (09:40→22:06)
[2017-06-13] MEDS: Divalproex ER TAB(*) 250 MG PO SCH ×2 (10:00→20:33)
--- NOTE | 2017-06-13 10:38 | PN ---
Subjective - Subjective Subjective: psychiatric attending progress note: met with patient X 60 minutes and requested he tell me details about items found in home by police and times in which he purchased them. patient bought gun in january/feb timeframe intending to use it for target practice. bougt scope in march on line and in april made silencer from materials he bought on line. patient denies ever having thought of using gun to harm human beings. denies homicidal ideation. also denies SI, intent or plan at present time. He insists that he intended to use gun for target practice. when asked where , he tells me that he passes [place] when driving home to [place] and had been thinking of going there. When asked why he needed silencer, he tells me it was to cover up the noise of the gun during target practice in the [place]. subsequent interview with Heather and his parents who arrived from [place] last night. they visited him last night. they were surprised to learn that he had purchased a gun without their knowledge Patient did not tell them as he knows his parents are strictly against using guns and likely would have insisted that he not purchase one. I discussed my diagnostic impression of Heather as having Scizoaffective Disorder Bipolar type. I shared that my concerns at present are the presence of paranoid ideation, with regard to feeling he could be harmed or unsafe.. and feeling suspicious about the intentions of others. furthermore, Heather did share today that he believes he was followed home by the police after purchasing something at a store recently. He believes the raid on his apartment may in fact be proof that the FBI or police have had him on surveillance. Heather also shared yesterday that the gun also provided a sense of security for him in that he would have a weapon to defend himself in case of a "home invasion" at his apartment here in [place]. Impression: heather has schizoaffective disorder and is being treated by psychiatrist in the community. while he has not been hospitalized since september of 2015, he continues to have residual depressive and psychotic symptoms (paranoia) on his current psychotropic regimen. To be sure He seems to have made gains with improved insight about his illness, improved capacity to take care of himself (cook, shop , pay his bills) and live independently. He also has made social gains. The presence of mood symtpoms and paranoid ideation continue to impact his ability to function and likely are major determinants to his difficulties with academic performance and regular school attendance. Shari denial that he has ever used his gun in the [place], as he suggests he has been planning to do since last fall, is perplexing. Shari isolation, depressed mood and the secrecy of the gun purchase raises further concerns. There is no indication that Heather exhibits antisocial character traits. There is no history of aggressive behavior, arrests, incarceration, serious rule violation, fire setting, impulsive or explosive anger. furthermore, Heather denies homicidal thoughts or fantasies either now or in past. to the contrary, Heather is described as sensitive, shy, loving and kind by his family. At the present time there is no indication that he is danger to self or others. Paranoid ideation, depression, history of mood swings, multiple recent and remote losses ( of his psychiatrist, father's car accident, temporary leave of absence from [employer], and medical leave of absence from [facility] which he just learned today), require that heather receive further treatment. He should not be permitted to purchase firearms given the incrased risk of violence in individuals with paranoid psychosis. Plan; d/c stelazine. start abiilty and titrate up to 15 mg daiily. to target patient' s shizoaffective disrorder (bipolar mood swings, paranoia, depression) change klonopin to 0.5 mg QID wellbutrin unchanged at 150 mg daily no stimulants for now trazodoen 50 mg qhs prn insomnia depakote er 1250 qam get VPA level on friday morning. Plan - Plan Treatment Plan: Name: SLOAN SHERIDAN Birthdate: 1995 [id number] Medications: Current Medications Acetaminophen (Tylenol Tab*) 650 mg PO Q4H PRN PRN Reason: for pain; or Temp >101 F Last Admin: 06/13/17 18:09 Dose: 650 mg Al Hydrox/Mg Hydrox/Simethicone (Maalox Plus*) 30 ml PO Q4H PRN PRN Reason: INDIGESTION Aripiprazole (Abilify Tab*) 5 mg PO BEDTIME [facility] Stop: 06/13/17 21:01 Aripiprazole (Abilify Tab*) 10 mg PO BEDTIME [facility] Stop: 06/14/17 21:01 Aripiprazole (Abilify Tab*) 15 mg PO BEDTIME [facility] Bupropion HCl (Wellbutrin Sr Tab*) 150 mg PO DAILY [facility] Last Admin: 06/13/17 09:37 Dose: 150 mg Clonazepam (Klonopin Tab(*)) 0.5 mg PO QID@09,13,17,21 [facility] Clonazepam (Klonopin Tab(*)) 1.5 mg PO BEDTIME [facility] Stop: 06/13/17 21:01 Device (Nicotine Mouth Piece*) 1 each INH .USE WITH NICOTROL PRN PRN Reason: CRAVING Last Admin: 06/12/17 12:32 Dose: 1 each Divalproex Sodium (Depakote Er Tab(*)) 1,250 mg PO DAILY@2099 [facility] Nicotine (Nicotine Inhaler*) 10 mg INH Q2H PRN PRN Reason: CRAVING Last Admin: 06/13/17 18:09 Dose: 10 mg Nicotine (Nicotine Patch 7 Mg/24 Hr*) 1 patch TRANSDERM DAILY [facility] Last Admin: 06/13/17 09:36 Dose: 1 patch Nicotine Polacrilex (Nicotine Gum*) 2 mg PO Q2H PRN PRN Reason: CRAVING Pharmacy Profile Note (Nicotine Patch Removal Note*) 1 note FOLLOW UP 2099 [facility] Last Admin: 06/12/17 20:43 Dose: Not Given Trazodone HCl (Desyrel Tab*) 50 mg PO BEDTIME PRN PRN Reason: INSOMNIA
[2017-06-13] MEDS ORDERED: clonazePAM TAB(*) 1 MG PO ONE (18:34)
[2017-06-13] MEDS: traZODone TAB* 50 MG TAB PO PRN (20:35)
[2017-06-13] MEDS ORDERED: TRIFLUOPERAZINE 5 MG PO SCH (21:00)
[2017-06-13] MEDS ORDERED: clonazePAM TAB(*) 1 MG PO SCH (21:00)
[2017-06-13] MEDS ORDERED: ARIPiprazole TAB* 5 MG PO SCH (21:00)
[2017-06-13] MEDS: Nicotine Patch Removal NOTE FOLLOW UP SCH (21:04)
[2017-06-13] MEDS: Nicotine GUM* 2 MG PO PRN (22:06)
[2017-06-14] MEDS: Acetaminophen TAB* 325 MG PO PRN ×3 (03:45→17:33)
[2017-06-14] MEDS: clonazePAM TAB(*) 0.5 MG PO SCH ×4 (09:58→20:48)
[2017-06-14] MEDS: buPROPion SR TAB.SR* 150 MG PO SCH (09:59)
[2017-06-14] MEDS: Nicotine PATCH 7 MG/24 HR* PATCH TRANSDERM SCH (09:59)
[2017-06-14] MEDS: Nicotine Inhaler* 10 MG AMP INH PRN ×3 (10:01→17:32)
[2017-06-14] MEDS ORDERED: Benztropine TAB* 1 MG ONE (12:52)
[2017-06-14] MEDS: Divalproex ER TAB(*) 250 MG PO SCH (20:44)
[2017-06-14] MEDS: traZODone TAB* 50 MG TAB PO PRN (20:48)
[2017-06-14] MEDS ORDERED: ARIPiprazole TAB* 5 MG PO SCH (21:00)
[2017-06-14] MEDS: Nicotine Patch Removal NOTE FOLLOW UP SCH (22:44)
[2017-06-15] MEDS: buPROPion SR TAB.SR* 150 MG PO SCH (08:26)
[2017-06-15] MEDS: Acetaminophen TAB* 325 MG PO PRN ×3 (08:27→16:54)
[2017-06-15] MEDS: Nicotine PATCH 7 MG/24 HR* PATCH TRANSDERM SCH (08:27)
[2017-06-15] MEDS: clonazePAM TAB(*) 0.5 MG PO SCH ×4 (08:28→20:40)
[2017-06-15] MEDS: Nicotine Inhaler* 10 MG AMP INH PRN ×4 (08:31→19:45)
[2017-06-15] MEDS: Divalproex ER TAB(*) 250 MG PO SCH (20:37)
[2017-06-15] MEDS: Benztropine TAB* 1 MG PO SCH (20:38)
[2017-06-15] MEDS: Nicotine Patch Removal NOTE FOLLOW UP SCH (20:41)
[2017-06-15] MEDS ORDERED: ARIPiprazole TAB* 5 MG PO SCH (21:00)
--- NOTE | 2017-06-15 21:57 | PN ---
Subjective - Subjective Date of Service: 06/15/17 Service Type: 63518 Hosp care 15 min low complexity Subjective: Max was complaining of stiffness which resolved with cogentin. [place] restless and had nightmeres with Trazodone. Wants Klonopin instead. Also wants to switch to Seroquel if possible. Advised to discuss with his attending in the morning and continue current meds as such. Denies any psychiatric issues and denies hallucinations, delusions,SI or HI. Objective - Appearance Appearance: Thin Framed Dysmorphic Features: No Hygiene: Mal-odorous Grooming: Disheveled - Behavior Psychomotor Activities: Abnormal-Increased Exhibits Abnormal Movement: No - Attitude and Relatedness Attitude and Relatedness: Appropriate Eye Contact: Fair - Speech Quality: Unpressured Latencies: Normal Quantity: Appropriate - Mood Patient's Decription of Mood: "Good" - Affect Observed Affect: Non-labile - Thought Process Patient's Thought Process: Coherent, Goal Directed Thought Content: No Passive Wish, No Suicidal Planning, No Homicidal Ideation, No Paranoid Ideation - Sensorium Experiencing Hallucinations: No, Sensorium is Clear Type of Hallucinations: Visual: No, Auditory: No, Command: No - Level of Consciousness Level of Consciousness: Alert Orientation: Yes Intact, Yes Orientated to Time, Yes Orientated to Place, Yes Orientated to Person - Impulse Control Impulse Control: Intact - Insight and Judgement Insight and Judgement: Poor - Group Participation Particating in Group Activities: Yes - Medication Management Medication Management Adherence: Yes Assessment - Assessment Merits Inpatient Hospitalization: For Immediate Safety, For Ongoing Evaluation, Pending Safe DC Plan Plan - Plan Treatment Plan: Name: SLOAN SHERIDAN Birthdate: 1995 [id number] Continued Medication Management: Continue Outpt Medication Medications: Current Medications Acetaminophen (Tylenol Tab*) 650 mg PO Q4H PRN PRN Reason: for pain; or Temp >101 F Last Admin: 06/15/17 16:54 Dose: 650 mg Al Hydrox/Mg Hydrox/Simethicone (Maalox Plus*) 30 ml PO Q4H PRN PRN Reason: INDIGESTION Aripiprazole (Abilify Tab*) 15 mg PO BEDTIME [facility] Last Admin: 06/15/17 20:38 Dose: 15 mg Benztropine Mesylate (Cogentin Tab*) 1 mg PO BID [facility] Last Admin: 06/15/17 20:38 Dose: 1 mg Bupropion HCl (Wellbutrin Sr Tab*) 150 mg PO DAILY [facility] Last Admin: 06/15/17 08:26 Dose: 150 mg Clonazepam (Klonopin Tab(*)) 0.5 mg PO QID@09,13,17,21 [facility] Last Admin: 06/15/17 20:40 Dose: 0.5 mg Device (Nicotine Mouth Piece*) 1 each INH .USE WITH NICOTROL PRN PRN Reason: CRAVING Last Admin: 06/12/17 12:32 Dose: 1 each Divalproex Sodium (Depakote Er Tab(*)) 1,250 mg PO DAILY@2099 [facility] Last Admin: 06/15/17 20:37 Dose: 1,250 mg Nicotine (Nicotine Inhaler*) 10 mg INH Q2H PRN PRN Reason: CRAVING Last Admin: 06/15/17 19:45 Dose: 10 mg Nicotine (Nicotine Patch 7 Mg/24 Hr*) 1 patch TRANSDERM DAILY [facility] Last Admin: 06/15/17 08:27 Dose: 1 patch Nicotine Polacrilex (Nicotine Gum*) 2 mg PO Q2H PRN PRN Reason: CRAVING Last Admin: 06/13/17 22:06 Dose: 2 mg Pharmacy Profile Note (Nicotine Patch Removal Note*) 1 note FOLLOW UP 2099 [facility] Last Admin: 06/15/17 20:41 Dose: 1 note Trazodone HCl (Desyrel Tab*) 50 mg PO BEDTIME PRN PRN Reason: INSOMNIA Last Admin: 06/14/17 20:48 Dose: 50 mg - Discharge Plan Discharge Plan: Outpatient Follow Up Outpatient Program: [facility]
[2017-06-16] MEDS: clonazePAM TAB(*) 0.5 MG PO SCH ×3 (09:05→16:59)
[2017-06-16] MEDS: Nicotine PATCH 7 MG/24 HR* PATCH TRANSDERM SCH (09:05)
[2017-06-16] MEDS: Acetaminophen TAB* 325 MG PO PRN ×2 (09:05→13:24)
[2017-06-16] MEDS: Benztropine TAB* 1 MG PO SCH ×2 (09:06→21:25)
[2017-06-16] MEDS: buPROPion SR TAB.SR* 150 MG PO SCH (09:06)
[2017-06-16] MEDS: Nicotine Inhaler* 10 MG AMP INH PRN ×3 (09:11→21:28)
--- NOTE | 2017-06-16 10:51 | PN ---
Subjective - Subjective Subjective: PSYCHIATRIC ATTENDING PROGRESS NOTE Meeting with Nurse who supervises our unit. Toyah that our unit will need to [place] police prior to patient being discharged from the unit. At that time patient will be placed in hand cuffs, arrested and charges will be filed against him. This past weekend patient stayed in bed mostly, isolative, attended selective groups, visited with parents. Father retained a net developer programmer who interviewed Max today. I met with max x 30 minutes. He reports that he had some side effects from the abilify including akithisia, limb rigidity, restlessness, difficulty sitting still. had trouble falling asleep this weekend. feels he needs the klonopin in the evening to help him fall asleep. Trazodone ineffective. was willing to try chlorpromazine for early insomnia. MSE: poor hygiene, unshaven. speech: increased spontaneity and fluency TP organized TC: no psychotic symptoms denies SI or Hi today insight and judgment are poor. \ Impression SChizoaffective disorder depressed type. Plan: change abilify 15 mg to QAM Change klonopin tp 0.5 mg BId and 1 mg hqs\ Depakote ER 1250 mg qhs Wellbutrin XL 150 mg qam cogentin 1 mg BID Plan - Plan Treatment Plan: Name: SLOAN SHERIDAN Birthdate: 1995 [id number] Medications: Current Medications Acetaminophen (Tylenol Tab*) 650 mg PO Q4H PRN PRN Reason: for pain; or Temp >101 F Last Admin: 06/16/17 13:24 Dose: 650 mg Al Hydrox/Mg Hydrox/Simethicone (Maalox Plus*) 30 ml PO Q4H PRN PRN Reason: INDIGESTION Aripiprazole (Abilify Tab*) 15 mg PO BEDTIME [facility] Last Admin: 06/15/17 20:38 Dose: 15 mg Benztropine Mesylate (Cogentin Tab*) 1 mg PO BID [facility] Last Admin: 06/16/17 09:06 Dose: 1 mg Bupropion HCl (Wellbutrin Sr Tab*) 150 mg PO DAILY [facility] Last Admin: 06/16/17 09:06 Dose: 150 mg Clonazepam (Klonopin Tab(*)) 0.5 mg PO QID@,13,17,21 [facility] Last Admin: 06/16/17 16:59 Dose: 0.5 mg Device (Nicotine Mouth Piece*) 1 each INH .USE WITH NICOTROL PRN PRN Reason: CRAVING Last Admin: 06/16/17 11:09 Dose: 1 each Divalproex Sodium (Depakote Er Tab(*)) 1,250 mg PO DAILY@2100 [facility] Last Admin: 06/15/17 20:37 Dose: 1,250 mg Nicotine (Nicotine Inhaler*) 10 mg INH Q2H PRN PRN Reason: CRAVING Last Admin: 06/16/17 11:11 Dose: 10 mg Nicotine (Nicotine Patch 7 Mg/24 Hr*) 1 patch TRANSDERM DAILY [facility] Last Admin: 06/16/17 09:05 Dose: 1 patch Nicotine Polacrilex (Nicotine Gum*) 2 mg PO Q2H PRN PRN Reason: CRAVING Last Admin: 06/13/17 22:06 Dose: 2 mg Pharmacy Profile Note (Nicotine Patch Removal Note*) 1 note FOLLOW UP 2099 [facility] Last Admin: 06/15/17 20:41 Dose: 1 note Trazodone HCl (Desyrel Tab*) 50 mg PO BEDTIME PRN PRN Reason: INSOMNIA Last Admin: 06/14/17 20:48 Dose: 50 mg
[2017-06-16] MEDS: Mouth Piece, Nicotine* 1 EACH CARTRIDGE INH PRN (11:09)
[2017-06-16] MEDS ORDERED: clonazePAM TAB(*) 1 MG PO SCH (21:00)
[2017-06-16] MEDS ORDERED: clonazePAM TAB(*) 1 MG PO ONE (21:00)
[2017-06-16] MEDS: Divalproex ER TAB(*) 250 MG PO SCH (21:23)
[2017-06-16] MEDS: clonazePAM TAB(*) 1 MG PO SCH (21:24)
[2017-06-16] MEDS: Nicotine Patch Removal NOTE FOLLOW UP SCH (21:26)
[2017-06-16] MEDS: chlorproMAZINE TAB* 25 MG PO SCH (21:26)
[2017-06-17] MEDS: Nicotine PATCH 7 MG/24 HR* PATCH TRANSDERM SCH (08:34)
[2017-06-17] MEDS: clonazePAM TAB(*) 0.5 MG PO SCH ×2 (08:35→14:38)
[2017-06-17] MEDS: buPROPion SR TAB.SR* 150 MG PO SCH (08:35)
[2017-06-17] MEDS: Benztropine TAB* 1 MG PO SCH ×2 (08:36→21:40)
[2017-06-17] MEDS: Acetaminophen TAB* 325 MG PO PRN ×3 (08:37→19:41)
[2017-06-17] MEDS ORDERED: ARIPiprazole TAB* 5 MG PO SCH (09:00)
--- NOTE | 2017-06-17 13:19 | PN ---
Subjective - Subjective Subjective: Psychiatric Attending Progress Note Family meeting held today parents,high school social science teacher and myself present parents shared information about family relationships, hopes for their son, ways they were helping to support heather in past while he lived independently in [place] over past few years. shared my medical recommendations to parents. the main recommendation was to work toward establishing a prolonged period of time during which Heather has remission or near remission of symptoms (euthymic mood withoutpsychotic symptoms) This is best accomplished if patient is in outpatient intensive treatment (or residential treatment followed by IOP/PHP) importance of low stress environment, supervision, and structured activities which patient enjoys and which favor recovery. uncertainties of current legal issues facing patient also came up during the meeting Met with Heather X 30 min He reports dry mouth which he attributes to cogentin. also feels "drugged" which he attributes to abilify. requested if we could cut back dosage. slept well last night with introduction of chlorpromazine (this also may cause sedation) interestingly, he did not appear oversedated during the interview. rather, he appeared very distracted, lost his trend of thought, needed questions repeated due to drifting in the conversation. furthermore, he still has not finished the MMPI questionairre which he started 5 days ago When I asked him about this he told me that it was hard to focus and complete written tasks when off his Vyvanse. Being off his vyvanse would also explain his lethargy in the morning, his drifting during conversations, his poor eye contact and his distractibility during the interview. When asked about paranoid ideation on a scale of 0 to 10 0 being most paranoid. Heather told me that back in July 2015 when he was manic and very psychotic, he would have considered himself a 10 on paranoia scale. he shared with me that at that time he was hiding in closet believing that someone was after him and were reading his text messages through laser technology. He told me that his level of paranoia upon admission here last week was about 5 out of 10 and currently is about an 8 out of 10. given the reality of FBI investigation some degree of paranoia might be expected. He does report that he was depressed, not attending school regularly and was living int he same clothing for two weeks "without even realizing it". He reports that his insight about his depression, and poor self care prior to his admission is better. "I see that i wasnt functioing well". MSE: as above distraactible, intermittent eye contact. unshaven but hygiene improved dressed casually in clean clothes speech normal rate and volume not pressured mood: euthymic affect: diminished range, low amplitude, no blunting TP organized and coherent. TC: no tam delusions, denies auditory or visual hallucinations. no SI no HI. alert and oriented in all spheres. insight improved. judgment: improving Impression; Schizoaffective most recently depressed with psychotic features. patient is making gains. mood improving and paranoia resolving ADHD severe history of polysubstance abuse opioid abuse with opiod induced psychosis Plan: lower abilify to 10 mg qam lower and discontinue cogentin over next few days Restart Vyvanse at lower dosge of 40 mg (instead of 70 mg) MMPI pending recommended that parents take patient home to [place] and enroll him in intenstive outpatient or [facility] level of programming. Plan - Plan Treatment Plan: Name: SLOAN SHERIDAN Birthdate: 1995 [id number] Medications: Current Medications Acetaminophen (Tylenol Tab*) 650 mg PO Q4H PRN PRN Reason: for pain; or Temp >101 F Last Admin: 06/17/17 12:52 Dose: 650 mg Al Hydrox/Mg Hydrox/Simethicone (Maalox Plus*) 30 ml PO Q4H PRN PRN Reason: INDIGESTION Aripiprazole (Abilify Tab*) 15 mg PO DAILY [facility] Last Admin: 06/17/17 08:35 Dose: 15 mg Benztropine Mesylate (Cogentin Tab*) 1 mg PO BID@ [facility] Last Admin: 06/17/17 08:36 Dose: 1 mg Bupropion HCl (Wellbutrin Sr Tab*) 150 mg PO DAILY [facility] Last Admin: 06/17/17 08:35 Dose: 150 mg Chlorpromazine HCl (Thorazine Tab*) 25 mg PO BEDTIME [facility] Last Admin: 06/16/17 21:26 Dose: 25 mg Clonazepam (Klonopin Tab(*)) 1 mg PO BEDTIME [facility] Last Admin: 06/16/17 21:24 Dose: 1 mg Clonazepam (Klonopin Tab(*)) 0.5 mg PO BID@,16 [facility] Last Admin: 06/17/17 08:35 Dose: 0.5 mg Device (Nicotine Mouth Piece*) 1 each INH .USE WITH NICOTROL PRN PRN Reason: CRAVING Last Admin: 06/16/17 11:09 Dose: 1 each Divalproex Sodium (Depakote Er Tab(*)) 1,250 mg PO DAILY@2099 [facility] Last Admin: 06/16/17 21:23 Dose: 1,250 mg Nicotine (Nicotine Inhaler*) 10 mg INH Q2H PRN PRN Reason: CRAVING Last Admin: 06/16/17 21:28 Dose: 10 mg Nicotine (Nicotine Patch 7 Mg/24 Hr*) 1 patch TRANSDERM DAILY [facility] Last Admin: 06/17/17 08:34 Dose: 1 patch Nicotine Polacrilex (Nicotine Gum*) 2 mg PO Q2H PRN PRN Reason: CRAVING Last Admin: 06/13/17 22:06 Dose: 2 mg Pharmacy Profile Note (Nicotine Patch Removal Note*) 1 note FOLLOW UP 2099 [facility] Last Admin: 06/16/17 21:26 Dose: 1 note
[2017-06-17] MEDS: Benzocaine/Menthol LOZ* 1 LOZENGE PO PRN ×2 (15:30→17:35)
[2017-06-17] MEDS: Mouth Piece, Nicotine* 1 EACH CARTRIDGE INH PRN (16:31)
[2017-06-17] MEDS: Nicotine Inhaler* 10 MG AMP INH PRN ×2 (16:31→19:41)
[2017-06-17] MEDS: chlorproMAZINE TAB* 25 MG PO SCH (20:45)
[2017-06-17] MEDS: clonazePAM TAB(*) 1 MG PO SCH (20:46)
[2017-06-17] MEDS: Divalproex ER TAB(*) 250 MG PO SCH (20:46)
[2017-06-17] MEDS: Nicotine Patch Removal NOTE FOLLOW UP SCH (21:42)
[2017-06-18] MEDS: Benzocaine/Menthol LOZ* 1 LOZENGE PO PRN (00:43)
[2017-06-18] MEDS: Acetaminophen TAB* 325 MG PO PRN ×2 (00:43→19:06)
[2017-06-18] MEDS ORDERED: diPHENhydraMINE PO* 25 MG ONE (01:24)
[2017-06-18] MEDS ORDERED: Levothyroxine TAB* 25 MCG TAB PO SCH ×2 (06:00→21:00)
[2017-06-18] MEDS: Lisdexamfetamine(NF) 10 MG CAP PO SCH (09:32)
[2017-06-18] MEDS: buPROPion SR TAB.SR* 150 MG PO SCH (09:32)
[2017-06-18] MEDS: ARIPiprazole TAB* 5 MG PO SCH (09:33)
[2017-06-18] MEDS: Nicotine PATCH 7 MG/24 HR* PATCH TRANSDERM SCH (09:34)
[2017-06-18] MEDS: clonazePAM TAB(*) 0.5 MG PO SCH ×2 (09:36→16:19)
[2017-06-18] MEDS: Benztropine TAB* 1 MG PO SCH (09:36)
--- NOTE | 2017-06-18 10:30 | PN ---
Subjective - Subjective Subjective: Psychiatric Progress Note met with Max x 30 min. remains dysphoric but improving affect brighter. able to look back and see how his mood had been fluctuating but also how impaired he was (isolating, not changing clothes, feeling paranoid, and highly anxious, not sleeping well, not taking his medications correctly). reports akithisia beginning at 12 noon cogentin helps with that feeling feels focus has been better today since restarting his Vyvanse. Able to complete the MMPI today which he attributes to Vyvanse met with parents today. my recommendation is going to be that max transfer to [facility] young adult unit which is closer to parent home in order to have extended inpatient t reatment in order to support further stabalization of his mental status before going to outpatient level of care. DID NOT FALL ASLEEP TILL 4 AM DESPITE STARTING THORAZINE 25 MG Plan: patient not stable for discharge. stillhaving side effects also not sleeping well. Also still titrating abilify. increase thorazine to 50 mg qhs and repeat 50 mg if not sleeping in one hour change cogentin to 0.5 mg TID to target akithisia continue other meds unchanged (ambien caused confusion) Plan - Plan Treatment Plan: Name: SLOAN SHERIDAN Birthdate: 1995 [id number] Medications: Current Medications Acetaminophen (Tylenol Tab*) 650 mg PO Q4H PRN PRN Reason: for pain; or Temp >101 F Last Admin: 06/18/17 00:43 Dose: 650 mg Al Hydrox/Mg Hydrox/Simethicone (Maalox Plus*) 30 ml PO Q4H PRN PRN Reason: INDIGESTION Aripiprazole (Abilify Tab*) 10 mg PO DAILY [facility] Last Admin: 06/18/17 09:33 Dose: 10 mg Benztropine Mesylate (Cogentin Tab*) 0.5 mg PO BID@ [facility] Last Admin: 06/18/17 09:36 Dose: 0.5 mg Bupropion HCl (Wellbutrin Sr Tab*) 150 mg PO DAILY [facility] Last Admin: 06/18/17 09:32 Dose: 150 mg Chlorpromazine HCl (Thorazine Tab*) 25 mg PO BEDTIME [facility] Last Admin: 06/17/17 20:45 Dose: 25 mg Clonazepam (Klonopin Tab(*)) 1 mg PO BEDTIME [facility] Last Admin: 06/17/17 20:46 Dose: 1 mg Clonazepam (Klonopin Tab(*)) 0.5 mg PO BID@16 [facility] Last Admin: 06/18/17 09:36 Dose: 0.5 mg Device (Nicotine Mouth Piece*) 1 each INH .USE WITH NICOTROL PRN PRN Reason: CRAVING Last Admin: 06/17/17 16:31 Dose: 1 each Divalproex Sodium (Depakote Er Tab(*)) 1,250 mg PO DAILY@2099 [facility] Last Admin: 06/17/17 20:46 Dose: 1,250 mg Levothyroxine Sodium (Synthroid Tab*) 12.5 mcg PO BEDTIME [facility] Lisdexamfetamine Dimesylate (Vyvanse(Nf)) 50 mg PO DAILY [facility] Last Admin: 06/18/17 09:32 Dose: 50 mg Nicotine (Nicotine Inhaler*) 10 mg INH Q2H PRN PRN Reason: CRAVING Last Admin: 06/17/17 19:41 Dose: 10 mg Nicotine (Nicotine Patch 7 Mg/24 Hr*) 1 patch TRANSDERM DAILY [facility] Last Admin: 06/18/17 09:34 Dose: 1 patch Nicotine Polacrilex (Nicotine Gum*) 2 mg PO Q2H PRN PRN Reason: CRAVING Last Admin: 06/13/17 22:06 Dose: 2 mg Pharmacy Profile Note (Nicotine Patch Removal Note*) 1 note FOLLOW UP 2099 [facility] Last Admin: 06/17/17 21:42 Dose: 1 note Throat Lozenges (Chloraseptic Diana*) 1 diaan PO Q2H PRN PRN Reason: SORE THROAT Last Admin: 06/18/17 00:43 Dose: 1 diana
[2017-06-18] MEDS: Nicotine Inhaler* 10 MG AMP INH PRN (19:06)
[2017-06-18] MEDS: chlorproMAZINE TAB* 50 MG PO SCH ×2 (20:07→22:53)
[2017-06-18] MEDS: clonazePAM TAB(*) 1 MG PO SCH (20:08)
[2017-06-18] MEDS ORDERED: chlorproMAZINE TAB* 25 MG PO SCH (21:00)
[2017-06-18] MEDS ORDERED: Benztropine TAB* 1 MG PO ONE (21:00)
[2017-06-18] MEDS: Nicotine Patch Removal NOTE FOLLOW UP SCH (22:51)
[2017-06-18] MEDS: Divalproex ER TAB(*) 250 MG PO SCH (22:55)
[2017-06-19 07:53] VITALS: BP 130/78
[2017-06-19] MEDS: Nicotine PATCH 7 MG/24 HR* PATCH TRANSDERM SCH (09:29)
[2017-06-19] MEDS: clonazePAM TAB(*) 0.5 MG PO SCH ×2 (09:29→16:11)
[2017-06-19] MEDS: ARIPiprazole TAB* 5 MG PO SCH (09:30)
[2017-06-19] MEDS: buPROPion SR TAB.SR* 150 MG PO SCH (09:30)
[2017-06-19] MEDS: Lisdexamfetamine(NF) 10 MG CAP PO SCH (09:31)
[2017-06-19] MEDS: Benztropine TAB* 1 MG PO SCH ×3 (09:31→16:52)
[2017-06-19] MEDS: Acetaminophen TAB* 325 MG PO PRN ×3 (09:32→19:23)
[2017-06-19] MEDS: Nicotine Inhaler* 10 MG AMP INH PRN ×3 (09:33→19:25)
--- NOTE | 2017-06-19 12:51 | PN ---
Subjective - Subjective Subjective: psychiatric attending progress note nursing reported that patient had difficulty sleeping last night took initial chlorpromazine 50 mg but unable to sleep. subsequently, was restless, pacing floors. was confusional (believed his sister had come to hospital and woken him up) patient subsequently received another dose of chlorpromazine per my order (total of 100 mg) for persistent insomnia. fell asleep about 4 AM and slept through breakfast till about 9 AM. pleasant, no attendance at group as patient was asked by myself to complete MMPI questionairre. did 400 of the 560 questions yesterday which was the day he restarted his vyvanse. today he completed the questionairre. I met with Ricki for 30 mintues during dinner. He reported to me that he slept 5 to 6 hours with the chlorpromazine. He shared that he was groggy when he awoke this AM- groggier than usual He continues to complain of blurry vision when he reads (accomodation problem) which he has had in past. MSE; Ricki's mental status showed decline and was more impaired than yesterday. firstly, he had consideral difficulty maintaining attention during the interview. He was unable to process and continually drifted from the conversation. I needed to rephrase and repeat several questions as he had difficulty remembering His thought process was disorganized. He had word finding difficulties and at one point showed thought blocking. He had great difficulty remembering the names of his medications and was confusing several medications which he clearly knew and understood several days ago. He denied SI or HI. We talked a bit about his drug use in past 6 months which consisted of "mushroom 7 grams, LSD 5 or 6 times and marijuana once or twice a month". He shared that his mood was more stable. He reported his paranoia was still present but was significantly less than it was prior to admission. no clear cut delusional beliefs expressed today. I communicated that my role was to stabalize his mental status by adjusting medications so that he was sleeping 7 to 8 hours nightly and had stable mood and minimal anxiety. also to make sure that he was not having intolerable side effects from medications. He understood this. I further told him that transfer to another inpatient facility was not an option as I had thought previously. He understands that he will be placed under arrest at time of his discharge due to current legal charges. He expressed feeling anxious about this but was not agitated or tearful as he had been two days ago. He expressed that he was pleased that he had a good divorce attorney to represent him. Labs: VPA drawn at 3:30 pm today low at 29 (previously 90) impression: 21 yo with SAD bipolar type, history of polysubstance abuse with moderate hallucinogen use ( LSD/psilocybin/cannabis) in past 6 months. patient's mood has stabalized since admission. He continues to have insomnia. his recent confusion/sedation past 24 hours is clearly related to chlorpromazine which I will discontinue. I will substitute seroquel 50 mg at bed which patient has had in past and which was helpful for him in past at lower doses Plan: d/c chlorpromazine and start seroquel 50 mg qhs beginning tonight continue all other medications unchanged i anticipate that patient's mental status will likely be stable enough for discharge by early next week. (cognitive/attentional changes seen with thorazine will remit in next 12 to 24 hours). would like sleep duration to be 7 to 8 hours which will optimize chances of achieving full remission of current depressive episode my hunch is that depakote level of 29 is not accurate patient's trough was 90 a few days ago. Plan - Plan Medications: Current Medications Acetaminophen (Tylenol Tab*) 650 mg PO Q4H PRN PRN Reason: for pain; or Temp >101 F Last Admin: 06/19/17 09:32 Dose: 650 mg Al Hydrox/Mg Hydrox/Simethicone (Maalox Plus*) 30 ml PO Q4H PRN PRN Reason: INDIGESTION Aripiprazole (Abilify Tab*) 10 mg PO DAILY [facility] Last Admin: 06/19/17 09:30 Dose: 10 mg Benztropine Mesylate (Cogentin Tab*) 0.5 mg PO TID@,, [facility] Last Admin: 06/19/17 09:31 Dose: 0.5 mg Bupropion HCl (Wellbutrin Sr Tab*) 150 mg PO DAILY [facility] Last Admin: 06/19/17 09:30 Dose: 150 mg Chlorpromazine HCl (Thorazine Tab*) 50 mg PO BEDTIME [facility] Last Admin: 06/18/17 22:53 Dose: 50 mg Clonazepam (Klonopin Tab(*)) 1 mg PO BEDTIME [facility] Last Admin: 06/18/17 20:08 Dose: 1 mg Clonazepam (Klonopin Tab(*)) 0.5 mg PO BID@09,16 [facility] Last Admin: 06/19/17 09:29 Dose: 0.5 mg Device (Nicotine Mouth Piece*) 1 each INH .USE WITH NICOTROL PRN PRN Reason: CRAVING Last Admin: 06/17/17 16:31 Dose: 1 each Divalproex Sodium (Depakote Er Tab(*)) 1,250 mg PO DAILY@2100 [facility] Last Admin: 06/18/17 22:55 Dose: Not Given Levothyroxine Sodium (Synthroid Tab*) 12.5 mcg PO BEDTIME [facility] Last Admin: 06/18/17 20:09 Dose: 12.5 mcg Lisdexamfetamine Dimesylate (Vyvanse(Nf)) 50 mg PO DAILY [facility] Last Admin: 06/19/17 09:31 Dose: 50 mg Nicotine (Nicotine Inhaler*) 10 mg INH Q2H PRN PRN Reason: CRAVING Last Admin: 06/19/17 09:33 Dose: 10 mg Nicotine (Nicotine Patch 7 Mg/24 Hr*) 1 patch TRANSDERM DAILY [facility] Last Admin: 06/19/17 09:29 Dose: 1 patch Nicotine Polacrilex (Nicotine Gum*) 2 mg PO Q2H PRN PRN Reason: CRAVING Last Admin: 06/13/17 22:06 Dose: 2 mg Pharmacy Profile Note (Nicotine Patch Removal Note*) 1 note FOLLOW UP 2099 [facility] Last Admin: 06/18/17 22:51 Dose: 1 note Throat Lozenges (Chloraseptic Diana*) 1 diana PO Q2H PRN PRN Reason: SORE THROAT Last Admin: 06/18/17 00:43 Dose: 1 diana
[2017-06-19 16:30] LABS: EGFR Non-African American 119.8 (>60)
[2017-06-19] MEDS: Nicotine GUM* 2 MG PO PRN (19:25)
--- NOTE | 2017-06-19 20:34 | DS ---
Discharge Planning - Discharge Planning Medications: Current Medications Acetaminophen (Tylenol Tab*) 650 mg PO Q4H PRN PRN Reason: for pain; or Temp >101 F Last Admin: 06/19/17 19:23 Dose: 650 mg Al Hydrox/Mg Hydrox/Simethicone (Maalox Plus*) 30 ml PO Q4H PRN PRN Reason: INDIGESTION Aripiprazole (Abilify Tab*) 10 mg PO DAILY [facility] Last Admin: 06/19/17 09:30 Dose: 10 mg Benztropine Mesylate (Cogentin Tab*) 0.5 mg PO TID@,, [facility] Last Admin: 06/19/17 16:52 Dose: 0.5 mg Bupropion HCl (Wellbutrin Sr Tab*) 150 mg PO DAILY [facility] Last Admin: 06/19/17 09:30 Dose: 150 mg Clonazepam (Klonopin Tab(*)) 1 mg PO BEDTIME [facility] Last Admin: 06/18/17 20:08 Dose: 1 mg Clonazepam (Klonopin Tab(*)) 0.5 mg PO BID@,16 [facility] Last Admin: 06/19/17 16:11 Dose: 0.5 mg Device (Nicotine Mouth Piece*) 1 each INH .USE WITH NICOTROL PRN PRN Reason: CRAVING Last Admin: 06/17/17 16:31 Dose: 1 each Divalproex Sodium (Depakote Er Tab(*)) 1,250 mg PO DAILY@2100 [facility] Last Admin: 06/18/17 22:55 Dose: Not Given Levothyroxine Sodium (Synthroid Tab*) 12.5 mcg PO BEDTIME [facility] Last Admin: 06/18/17 20:09 Dose: 12.5 mcg Lisdexamfetamine Dimesylate (Vyvanse(Nf)) 50 mg PO DAILY [facility] Last Admin: 06/19/17 09:31 Dose: 50 mg Nicotine (Nicotine Inhaler*) 10 mg INH Q2H PRN PRN Reason: CRAVING Last Admin: 06/19/17 19:25 Dose: 10 mg Nicotine (Nicotine Patch 7 Mg/24 Hr*) 1 patch TRANSDERM DAILY [facility] Last Admin: 06/19/17 09:29 Dose: 1 patch Nicotine Polacrilex (Nicotine Gum*) 2 mg PO Q2H PRN PRN Reason: CRAVING Last Admin: 06/19/17 19:25 Dose: 2 mg Pharmacy Profile Note (Nicotine Patch Removal Note*) 1 note FOLLOW UP [facility] [facility] Last Admin: 06/18/17 22:51 Dose: 1 note Quetiapine Fumarate (Seroquel Tab*) 50 mg PO BEDTIME [facility] Throat Lozenges (Chloraseptic Diana*) 1 diana PO Q2H PRN PRN Reason: SORE THROAT Last Admin: 06/18/17 00:43 Dose: 1 diana Discharge Planning: Prescriptions provided for discharge [] Yes [] No Follow up care details as per social work arrangements. Patient response to discharge plan: [] eager for discharge [] agreeable with discharge plan [] ambivalent about discharge [] disagrees with discharge today
[2017-06-19] MEDS ORDERED: chlorproMAZINE TAB* 100 MG PO SCH (21:00)
[2017-06-19] MEDS ORDERED: QUEtiapine TAB* 25 MG PO SCH (21:00)
--- NOTE | 2017-06-24 03:39 | CONS ---
PSYCHOLOGICAL REPORT: DATE OF CONSULT: 06/20/17 REASON FOR REFERRAL: Ezequiel was referred for personality testing in order to help address diagno stic concerns secondary to historical diagnosis of bipolar disorder. TESTS ADMINISTERED: Ricki completed the [place] Multiphasic Personality Inventory- 2 (MMPI-2). BEHAVIORAL OBSERVATIONS: Ricki was rather a reluctant participant in programing only, circulating at t he fringes of groups during his stay here. He did not spontaneously engage in clinical conversation with this typewriter tester, but did eventually comply with completion of the requested test protocol. He expre ssed reluctance to take the test citing difficulty with attention and concentration. Ricki presented w ith flat affect that was generally unvariable. He was not spontaneous in conversation with staff. Melissa [place] expressed concerns regarding nature of some phone calls he had made to friends while here. RELEVANT HISTORY: Ricki was brought in by the [place] [employer] secondary to concerns regarding potential lethality to either self or others as he has been stockpiling weapons and ammunition in pr s home. Ricki moved to [place], [place], last year to attend [employer], but had difficulty in adjusting to life on campus and had been hospitalized at this facility during his first year in [facility] [employer] . 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 However, he d oes have a historical diagnosis of a bipolar disorder and what sounds to be marked difficulties with attention and concentration as well. He continues to describe difficulties with being inattentive an d highly distractible, and despite having had admission in the [employer], has been struggling with cour se work at [employer] this semester. He had plans to be re-enrolled at [employer], but they apparently encoura ged him to take another semester of medical leave before trying to re-enroll once again. Of late, he had been having difficulties with sleep as well as other problems which is found to be consistent wi th a period of marli. He describes increased drug use of late after he had difficulty with insomnia as his girlfriend had expressed concerns regarding a decline in function. Per his admission note, he had been describing increasing difficulties with depression characterized by anhedonia, low energy a nd negative self-image with problems with regular sleep recurring. He denied experiencing suicidal o r homicidal ideation with staff describing his interest in guns as being recreational in nature. TEST RESULTS: Ricki appears to have approached the testing protocol in a defensive and guarded fashion . He has a marginal elevation on the lie scale (L=65) which is reflective of what is felt to be a "b est foot forward" approach to endorsement of symptomatology. As such, the veracity of current testin nakita should not be taken in a literal fashion, but in the context of his recent arrest and ongoing FBI i nvestigation. The most prominent elevation on clinical scale indices is his endorsement of paranoia (T=80), as well as minimal elevations on both the psychasthenia and schizophrenia scales (T=66 and 67 ). He also has significant scoring on the neurotic triad with the scores on depression hovering righ t at a T- score of 65. Of note, he does not currently elevate the hypomania scale (T=55). Impression supports concerns regarding psychotic function characterized by distrust of others and perhaps fear of his well being. Persons who elevate paranoia and schizophrenia scales are described as experience d a great deal of dysphoria, agitation and rumination. Persons with similar profiles are described a s carrying a sense of dread about what might happen to them and may have blunted and inappropriate af fect at times. Similar persons also describe difficulties with concentration and attention and subse quent memory deficits. They may experience poor judgment at times secondary to not understanding con text accurately. Persons with similar cotypes were described as being preoccupied about abstract the oretical issues including buddhist and perhaps sexual themes and they may believe that their thoughts are better kept to themselves rather than shared with others. If left untreated, such persons may d evelop difficulties with bizarre associations and engage in some autistic type thought processes. Pe rsons with similar cotypes are described as struggling in the interpersonal context, especially as th ey may feel suspicious and distrustful of others. Such persons are described as often feeling apathe tic and socially isolated with concerns about encroaching social withdrawal and negative symptoms of psychosis likely to become more pronounced if left untreated. IMPRESSIONS AND RECOMMENDATIONS: The current diagnostic rule out impresses as being that of a bipola r disorder versus that of a schizoaffective disorder, with the latter reflective of more severe and p ersisting difficulties including psychotic range disturbance. His difficulties may have been exacerb ated by what sounds to be kind of binge drug use and his history, although it is not clear with this typewriter tester if that was part of his current presenting problem. He warrants further diagnostic considerat ion and treatment with concerns regarding emergence of psychotic symptoms as prominent treatment goal . Concerns regarding safety for self and others are apparent secondary to his interest in acquiring various sorts of weaponry. [id number]/[facility] #: [id number]
== END 2017-06-19 20:00 | DRG 885 ==
LOC: ED 20:36 → BSU 06-12 11:06
PROVIDERS: ADMIT Psychiatry & Neurology Psychiatry; ATTEND Psychiatry & Neurology Psychiatry
DX: F25.0 Schizoaffective disorder, bipolar type (principal); G25.71 Drug induced akathisia; F39 Unspecified mood [affective] disorder; F11.129 Opioid abuse with intoxication, unspecified; F17.210 Nicotine dependence, cigarettes, uncomplicated; J45.909 Unspecified asthma, uncomplicated; F90.0 Attention-deficit hyperactivity disorder, predominantly inattentive type; F31.9 Bipolar disorder, unspecified; F11.14 Opioid abuse with opioid-induced mood disorder; T43.595A Adverse effect of other antipsychotics and neuroleptics, initial encounter; Y92.239 Unspecified place in hospital as the place of occurrence of the external cause; G47.00 Insomnia, unspecified; F12.90 Cannabis use, unspecified, uncomplicated; F16.90 Hallucinogen use, unspecified, uncomplicated; F19.90 Other psychoactive substance use, unspecified, uncomplicated; Z88.6 Allergy status to analgesic agent; Z91.5 Personal history of self-harm; Z72.89 Other problems related to lifestyle; Z23 Encounter for immunization; Z81.8 Family history of other mental and behavioral disorders; Z81.1 Family history of alcohol abuse and dependence
CPT/HCPCS: 36415; 80053; 80061; 80164; 80307; 80320; 80329; 81003; 81015; 82550; 82565; 83036; 84436; 84439; 84443; 85025; 86376; 86592; 87086; 90686; 90847; 99222; 99231; 99232; 99233; 99238; 99285; A9270-GY; G0480